=== PATIENT | male | born 1945 | race Caucasian/White ===

== ENCOUNTER 2021-01-17 18:52 | Emergency (ER) | payer MEDICARE ==
[~2021-01-17 18:52] MED LIST: GLUCOPHAGE 500500 MG MT; LISINOPRIL5 MG MT; PRECOSE 50 MG T50 MG; PROPAFENONE HC150 MG MT; XARELTO20 MG MT; ZOFRAN ODT4 MG PO
[2021-01-17 20:08] LABS: HEMOGLOBIN 13.5 gm/dl (14.0-17.5); RED BLOOD COUNT 3.96 M/UL (4.20-5.50)
[2021-01-17 20:19] LABS: BUN/CREATININE RATIO 15 (0-10)
[2021-01-17] MEDS ORDERED: MECLIZINE HCL25 MG PO (21:52)
[2021-01-17] MEDS ORDERED: ONDANSETRON ODT4 MG SL (21:52)
== END 2021-01-17 22:07 | disposition home or self-care (01) ==
LOC: ER1 18:52
PROVIDERS: Physician Assistant
DX: E86.0 Dehydration (principal); N28.9 Disorder of kidney and ureter, unspecified; R11.2 Nausea with vomiting, unspecified; R42 Dizziness and giddiness; E11.9 Type 2 diabetes mellitus without complications; I10 Essential (primary) hypertension; I48.91 Unspecified atrial fibrillation; Z90.89 Acquired absence of other organs; Z88.0 Allergy status to penicillin
CPT/HCPCS: 70450; 80053; 81001; 82550; 82553; 83874; 84484; 85025; 93005; 96374; 99284; J2405